=== PATIENT | male | born 1960 | race American Indian/Alaskan Native ===

== ENCOUNTER 2017-12-28 15:33 | Emergency (ER) | payer OTHER ==
[2017-12-28] MEDS ORDERED: TORADOL IM ONE (19:30)
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
[2017-12-28 20:43] VITALS: BP 156/76
== END 2017-12-28 20:41 | disposition home or self-care (01) ==
LOC: ED 15:33
DX: S39.012A Strain of muscle, fascia and tendon of lower back, initial encounter (principal); Z88.8 Allergy status to other drugs, medicaments and biological substances; V89.2XXA Person injured in unspecified motor-vehicle accident, traffic, initial encounter; Y93.89 Activity, other specified; Y99.8 Other external cause status; Y92.410 Unspecified street and highway as the place of occurrence of the external cause
CPT/HCPCS: 96372; 96374; 99282; J1885